=== PATIENT | male | born 1970 | race Two or more races ===

== ENCOUNTER 2021-08-14 04:17 | Inpatient (IN) | payer SELFPAY ==
[~2021-08-14] VITALS: Ht 177.8 cm; Wt 99.8 kg
[2021-08-14 05:29] LABS: HEMATOCRIT 38.4 % (36.7-47.1); MEAN CORPUSCULAR HEMOGLOBIN 26.3 uug (23.8-33.4); MEAN CORPUSCULAR VOLUME 78.1 fL (73.0-96.2); PLATELET COUNT (AUTO) 217 K/uL (152-348)
[2021-08-14 05:31] LABS: *BILIRUBIN,URIN NEGATIVE (NEGATIVE); *BLOOD, URINE 2+ (NEGATIVE); *CLARITY,URINE CLEAR (CLEAR); *COLOR,URINE YELLOW (YELLOW); *KETONES,URINE 1+ (NEGATIVE); LEUKOCYTE ESTERASE ,URINE NEGATIVE (NEGATIVE); NITRITE, URINE NEGATIVE (NEGATIVE); PH,URINE 5.5 (5.0-8.0); UGLUCOSE NEGATIVE (NEGATIVE)
[2021-08-14 05:49] LABS: ETHANOL < 3 MG/DL (0-0)
[2021-08-14 05:51] LABS: *AMPHETAMINE, URINE NEGATIVE (NEGATIVE); *CANNABINOID, URINE NEGATIVE (NEGATIVE); *COCCAINE, URINE NEGATIVE (NEGATIVE); *OPIATE, URINE NEGATIVE (NEGATIVE); *PHENCYCLIDINE SCREEN,URINE NEGATIVE (NEGATIVE)
[2021-08-14 06:01] LABS: CARBON DIOXIDE 22 mmol/L (21-32); CHLORIDE 97 mmol/L (98-107); CREATININE 1.1 mg/dL (0.6-1.3); GLUCOSE 190 mg/dL (74-106); POTASSIUM 3.6 mmol/L (3.5-5.1); UREA NITROGEN, BLOOD 14 mg/dL (7-18)
[2021-08-14 06:09] LABS: ALANINE AMINOTRANSFERASE 68 U/L (16-63); ALKALINE PHOSPHATASE 110 U/L (50-136); ASPARTATE AMINOTRANSFERASE 32 U/L (15-37); BILIRUBIN,DIRECT 0.3 mg/dL (0.0-0.2); BILIRUBIN,TOTAL 0.9 mg/dL (0.2-1.0); TOTAL PROTEIN, SERUM 8.5 g/dL (6.4-8.2)
[2021-08-14 06:11] LABS: ACETAMINOPHEN < 2.0 ug/mL (10-30)
[2021-08-14 06:18] LABS: BACTERIA,URINE NONE SEEN /HPF (NONE SEEN); SQUAMOUS EPITHELIAL CELL,UR FEW /HPF (NONE SEEN); WBC,URINE 0-3 /HPF (0-3)
[2021-08-14] MEDS ORDERED: IV NS 1000 ML 1,000 ML IV ONE (06:30)
[2021-08-14] MEDS ORDERED: levETIRAcetam IV 1,000 MG in IV DEXTROSE 5% 100 ML IV ONE (08:30)
[2021-08-14] MEDS ORDERED: levETIRAcetam 500 MG/5 ML VIAL IV ONE (08:39)
[2021-08-14 11:28] VITALS: BP 135/85
[2021-08-14] MEDS ORDERED: REMEDY ESSENTIAL ZINC PASTE 113 GM TP PRN (12:00)
[2021-08-14] MEDS ORDERED: ONDANSETRON 4 MG/2 ML VIAL IV PRN (12:00)
[2021-08-14] MEDS ORDERED: ACETAMINOPHEN 325 MG TABLET PO PRN (12:00)
[2021-08-14] MEDS: IV NS 1000 ML 1,000 ML IV PRN (12:48)
[2021-08-14] MEDS: ENOXAPARIN SODIUM 40 MG/0.4 ML DISP.SYRIN SQ SCH (12:50)
[2021-08-14 16:00] VITALS: BP 128/82
[2021-08-14 20:21] VITALS: BP 133/79
[2021-08-15] MEDS: IV NS 1000 ML 1,000 ML IV PRN (02:37)
[2021-08-15 04:27] VITALS: BP 121/75
[2021-08-15 06:34] LABS: HEMATOCRIT 33.8 % (36.7-47.1); MEAN CORPUSCULAR HEMOGLOBIN 26.7 uug (23.8-33.4); MEAN CORPUSCULAR VOLUME 78.3 fL (73.0-96.2); PLATELET COUNT (AUTO) 182 K/uL (152-348)
[2021-08-15 07:14] LABS: THYROID STIMULATING HORMONE 1.045 mIU/mL (0.358-3.740)
[2021-08-15 07:15] LABS: BILIRUBIN,TOTAL 0.5 mg/dL (0.2-1.0); MAGNESIUM 2.1 mg/dL (1.8-2.4); PHOSPHOROUS 2.7 mg/dL (2.5-4.9); POTASSIUM 3.4 mmol/L (3.5-5.1); TOTAL PROTEIN, SERUM 6.9 g/dL (6.4-8.2)
[2021-08-15] MEDS: ENOXAPARIN SODIUM 40 MG/0.4 ML DISP.SYRIN SQ SCH (08:50)
[2021-08-15] MEDS ORDERED: LOSARTAN POTASSIUM 25 MG TABLET PO SCH (09:00)
[2021-08-15] MEDS ORDERED: POTASSIUM CHLORIDE 10 MEQ TAB.PRT.SR PO ONE (11:30)
[2021-08-15 11:45] VITALS: BP 129/77
[2021-08-15] MEDS ORDERED: METF-440 PO (14:04)
[2021-08-15] MEDS ORDERED: GLIM4TAB37 PO (14:04)
[2021-08-15] MEDS ORDERED: ASPI-1420 PO (14:04)
[2021-08-15] MEDS ORDERED: ATOR20TA PO (14:04)
[2021-08-15] MEDS ORDERED: SITA50TA PO (14:04)
[2021-08-15 15:47] VITALS: BP 123/68
== END 2021-08-15 18:11 | disposition home or self-care (01) | DRG 101 ==
LOC: ER 04:21 → TELE3 11:11 → MEDSURG3 11:46
PROVIDERS: ADMIT Nurse Practitioner Acute Care; ATTEND Nurse Practitioner Acute Care
DX: G40.909 Epilepsy, unspecified, not intractable, without status epilepticus (principal); E11.65 Type 2 diabetes mellitus with hyperglycemia; Z98.2 Presence of cerebrospinal fluid drainage device; F17.210 Nicotine dependence, cigarettes, uncomplicated; I10 Essential (primary) hypertension; Z83.3 Family history of diabetes mellitus; Z79.899 Other long term (current) drug therapy; Z98.890 Other specified postprocedural states; R79.89 Other specified abnormal findings of blood chemistry; R51.9 Headache, unspecified
CPT/HCPCS: 36415; 70450; 71045; 83605; 83735; 84100; 84443; 84484; 85025; 93005; 97161; A4663; G0378; G0480; J1650; J1953; J7040